=== PATIENT | female | born 1965 | race Caucasian/White ===

== ENCOUNTER 2018-11-13 10:11 | Outpatient (REF) | payer BC, SELFPAY ==
[2018-11-13 19:10] LABS: Anion Gap 9.7 mmol/L (3-11); BUN 15 mg/dL (7-18); CO2 28.3 mmol/L (21.0-32.0); CREATININE 1.06 mg/dL (0.55-1.02); Calcium 8.6 mg/dL (8.5-10.1); Chloride 102 mmol/L (98-107); Cholesterol 197 mg/dL (50-200); Estimated GFR 54.23 (mL/min/1.73m2); Glucose 93 mg/dL (70-100); HDL Cholesterol 45 mg/dL (40-60); LDL CHOLESTEROL 129 mg/dL (<100); Potassium 4.3 mmol/L (3.5-5.1); Sodium 140 mmol/L (136-145); Triglyceride 121 mg/dL (30-150)
== END 2018-11-13 10:31 ==
LOC: NCHCN 10:11
PROVIDERS: PCP Physician Assistant Medical; Visit Provider Physician Assistant Medical
DX: Z00.00 Encounter for general adult medical examination without abnormal findings (principal); Z13.220 Encounter for screening for lipoid disorders; Z13.228 Encounter for screening for other metabolic disorders
CPT/HCPCS: 80048; 80061; 83721

== ENCOUNTER 2021-08-31 14:48 | Outpatient (REF) | payer BC, SELFPAY ==
[2021-08-31 19:35] LABS: ALT 38 U/L (14-59); Anion Gap 7.1 mmol/L (3-11); BUN 17 mg/dL (7-18); CO2 27.9 mmol/L (21.0-32.0); CREATININE 0.9 mg/dL (0.55-1.02); Calcium 8.7 mg/dL (8.5-10.1); Calculated LDL 147 mg/dL (<100); Chloride 100 mmol/L (98-107); Cholesterol 252 mg/dL (<200); Glucose 91 mg/dL (74-106); HDL Cholesterol 44 mg/dL (40-60); Potassium 3.4 mmol/L (3.5-5.1); Sodium 135 mmol/L (136-145); Triglyceride 308 mg/dL (<150)
== END 2021-08-31 14:49 | disposition home or self-care (01) ==
LOC: NCHCN 14:48
PROVIDERS: PCP Physician Assistant Medical; Visit Provider Internal Medicine
DX: Z00.00 Encounter for general adult medical examination without abnormal findings (principal); I10 Essential (primary) hypertension
CPT/HCPCS: 80048; 80061; 84460

== ENCOUNTER 2022-10-22 19:03 | Outpatient (REF) | payer BC, SELFPAY ==
[2022-10-22 19:09] LABS: ALT 33 U/L (14-59); Anion Gap 6.7 mmol/L (3-11); BUN 17 mg/dL (7-18); CO2 30.3 mmol/L (21.0-32.0); Calcium 9.1 mg/dL (8.5-10.1); Calculated LDL 99 mg/dL (<100); Chloride 103 mmol/L (98-107); Cholesterol 177 mg/dL (<200); Creatine Kinase 301 U/L (26-192); Estimated GFR 65.71 (mL/min/1.73m2); Glucose 91 mg/dL (74-106); HDL Cholesterol 50 mg/dL (40-60); Potassium 3.6 mmol/L (3.5-5.1); Sodium 140 mmol/L (136-145); Triglyceride 143 mg/dL (<150)
== END 2022-10-22 19:04 | disposition home or self-care (01) ==
LOC: NCHCN 19:03
PROVIDERS: PCP Physician Assistant Medical; Visit Provider Internal Medicine
DX: Z00.00 Encounter for general adult medical examination without abnormal findings (principal); Z13.220 Encounter for screening for lipoid disorders; I10 Essential (primary) hypertension
CPT/HCPCS: 80048; 80061; 82550; 84460

== ENCOUNTER 2023-11-18 18:11 | Outpatient (REF) | payer BC, SELFPAY ==
[2023-11-18 19:31] LABS: ALT 38 U/L (14-59); Anion Gap 8.9 mmol/L (3-11); BUN 19 mg/dL (7-18); CO2 30.1 mmol/L (21.0-32.0); CREATININE 1.2 mg/dL (0.55-1.02); Calcium 9.1 mg/dL (8.5-10.1); Calculated LDL 96 mg/dL (<100); Chloride 105 mmol/L (98-107); Cholesterol 184 mg/dL (<200); Estimated GFR 52.47 (mL/min/1.73m2); Glucose 89 mg/dL (74-106); HDL Cholesterol 51 mg/dL (40-60); Potassium 3.7 mmol/L (3.5-5.1); Sodium 144 mmol/L (136-145); Triglyceride 187 mg/dL (<150)
[2023-11-18 19:50] LABS: Creatine Kinase 471 U/L (26-192)
== END 2023-11-18 18:12 | disposition home or self-care (01) ==
LOC: NCHCN 18:11
PROVIDERS: PCP Physician Assistant Medical; Visit Provider Internal Medicine
DX: Z00.00 Encounter for general adult medical examination without abnormal findings (principal); I10 Essential (primary) hypertension; R79.89 Other specified abnormal findings of blood chemistry
CPT/HCPCS: 80048; 80061; 82550; 84460

== ENCOUNTER 2024-12-07 16:07 | Outpatient (REF) | payer BC, SELFPAY ==
[2024-12-07 19:47] LABS: ALT 38 U/L (14-59); BUN 17 mg/dL (7-18); CREATININE 0.9 mg/dL (0.55-1.02); Calcium 9.3 mg/dL (8.5-10.1); Calculated LDL 94 mg/dL (<100); Chloride 101 mmol/L (98-107); Cholesterol 157 mg/dL (<200); Estimated GFR 73.64 (mL/min/1.73m2); Glucose 96 mg/dL (74-106); HDL Cholesterol 52 mg/dL (>or=50); Sodium 140 mmol/L (136-145); Triglyceride 56 mg/dL (<150)
[2024-12-07 20:03] LABS: Creatine Kinase 338 U/L (26-192)
[2024-12-08 19:00] LABS: PSA, Screening 0.6 ng/mL
== END 2024-12-07 16:08 | disposition home or self-care (01) ==
LOC: NCHCN 16:07
PROVIDERS: PCP Physician Assistant Medical; Visit Provider Internal Medicine
DX: Z12.5 Encounter for screening for malignant neoplasm of prostate (principal); E78.5 Hyperlipidemia, unspecified; I10 Essential (primary) hypertension
CPT/HCPCS: 80048; 80061; 82550; 84153; 84460